=== PATIENT | male | born 1990 | race Caucasian/White ===

== ENCOUNTER 2017-09-22 22:20 | Emergency (ER) | payer SELFPAY ==
[~2017-09-22 22:20] MED LIST: Iopamidol 370 76% 100 ML VIAL ONE; Sodium Chloride 0.9% 1,000 ML BAG ONE
[2017-09-22] MEDS ORDERED: Fentanyl 100 MCG/2 ML VIAL ONE ×2 (22:37→23:38)
[2017-09-22] MEDS ORDERED: Ondansetron HCl/PF 4 MG/2 ML Vial ONE (22:37)
[2017-09-22 22:50] LABS: #Basophils 0.1 thou/uL (0.0-0.2); #Eosinphils 0.1 thou/uL (0.0-0.7); #Lymphocytes 3.3 thou/uL (1.20-3.40); #Monocytes 0.9 thou/uL (0.11-0.59); #Neutrophils 6.5 thou/uL (1.40-6.50); %Basophils 0.9 % (0.0-1.0); %Eosinophils 1.3 % (0.0-10.0); %Neutrophils 59.9 % (42.0-75.0); Anion Gap 16 mmol/L (10-20); BUN (Urea Nitrogen) 11 mg/dL (8.9-20.6); Calc. Creatinine Clearance 0 mL/min (70-130); Calcium 9.4 mg/dL (7.8-10.44); Carbon Dioxide 26 mmol/L (22-29); Chloride 104 mmol/L (98-107); Estimated GFR-MDRD Greater than 90; Glucose 130 mg/dL (70-105); Hemoglobin 15.2 g/dL (14.0-18.0); Mean Corpuscular HGB CONC 34.7 g/dL (32.0-36.0); Mean Corpuscular Hemoglobin 32.2 pg (27.0-31.0); Mean Corpuscular Volume 92.7 fl (80.0-94.0); Mean Platelet Volume 6.9 fL (7.4-10.4); Platelet Count 295 thou/uL (130-400); Potassium 3.2 mmol/L (3.5-5.1); RBC Distribution Width 12.1 % (11.5-14.5); Red Blood Cell (RBC) Count 4.74 mill/uL (4.70-6.10); Sodium 143 mmol/L (136-145); White Blood Cell (WBC) Count 10.9 thou/uL (4.8-10.8)
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
== END 2017-09-23 00:18 | disposition short-term general hospital (02) ==
LOC: MADERS 22:20
DX: S22.041A Stable burst fracture of fourth thoracic vertebra, initial encounter for closed fracture (principal); S22.051A Stable burst fracture of T5-T6 vertebra, initial encounter for closed fracture; S02.40CA Maxillary fracture, right side, initial encounter for closed fracture; S02.31XA Fracture of orbital floor, right side, initial encounter for closed fracture; S62.300A Unspecified fracture of second metacarpal bone, right hand, initial encounter for closed fracture; S62.302A Unspecified fracture of third metacarpal bone, right hand, initial encounter for closed fracture; S62.304A Unspecified fracture of fourth metacarpal bone, right hand, initial encounter for closed fracture; V29.40XA Motorcycle driver injured in collision with unspecified motor vehicles in traffic accident, initial encounter
CPT/HCPCS: 70450; 70486; 71260; 72125; 74177; 80048; 80307; 85025; 94760; 96361; 96374; 96375; 96376; J2405; J3010; J7050

== ENCOUNTER 2018-02-17 09:49 | Emergency (ER) | payer MEDICAID | END 2018-02-17 10:20 | disposition home or self-care (01) | LOC: MADERS 09:49 | DX: S61.210A Laceration without foreign body of right index finger without damage to nail, initial encounter (principal); W26.9XXA Contact with unspecified sharp object(s), initial encounter | CPT/HCPCS: 12001 ==

== ENCOUNTER 2018-10-07 10:23 | Emergency (ER) | payer OTHER, SELFPAY ==
[2018-10-07] MEDS ORDERED: Timolol 0.5% Ophth Soln 5 ml Bottle ONE (10:50)
[2018-10-07] MEDS ORDERED: Tetracaine 0.5% OPHTH SOLN/PF 4 ML BOT ONE (10:51)
[2018-10-07] MEDS ORDERED: Erythromycin Base 0.5% Ophth Oint 3.5 gm Tube ONE ×2 (11:18→11:27)
== END 2018-10-07 11:35 | disposition home or self-care (01) ==
LOC: MADERS 10:23
DX: H00.11 Chalazion right upper eyelid (principal)
CPT/HCPCS: 99283

== ENCOUNTER 2019-07-12 10:44 | Emergency (ER) | payer SELFPAY ==
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
== END 2019-07-12 13:08 | disposition home or self-care (01) ==
LOC: MADERS 10:44
DX: S70.02XA Contusion of left hip, initial encounter (principal); V00.131A Fall from skateboard, initial encounter; Y93.51 Activity, roller skating (inline) and skateboarding

== ENCOUNTER 2020-11-05 23:02 | Emergency (ER) | payer SELFPAY ==
[~2020-11-05 23:02] MED LIST changes: -Sodium Chloride 0.9% 1,000 ML BAG ONE
[2020-11-06 01:22] LABS: Band 2 % (5-11); Hemoglobin 15.8 g/dL (14.0-18.0); Lymphocytes 12 % (21-51); MDiff Complete? YES; Mean Corpuscular HGB CONC 31.9 g/dL (32.0-36.0); Mean Corpuscular Hemoglobin 30.4 pg (27.0-31.0); Mean Corpuscular Volume 95.4 fL (78.0-98.0); Mean Platelet Volume 7.9 fL (7.4-10.4); Monocytes 1 % (0-10); Neutrophil 84 % (42-75); Platelet Count 287 thou/uL (130-400); Platelet Morphology Comment Appears Adequate; RBC Distribution Width 11.9 % (11.5-14.5); RBC Morphology Normal; Reactive Lymphocytes 1 % (0-10); Red Blood Cell (RBC) Count 5.18 mill/uL (4.70-6.10)
[2020-11-06] MEDS ORDERED: Sodium Chloride 0.9% 1,000 ML ONE (01:23)
[2020-11-06 01:30] LABS: ALT (SGPT) 21 U/L (8-55); AST (SGOT) 21 U/L (5-34); Albumin 4.8 g/dL (3.5-5.0); Alcohol 144 mg/dL (Less than 10); Alkaline Phosphatase 78 U/L (40-110); Anion Gap 17 mmol/L (10-20); BUN (Urea Nitrogen) 7 mg/dL (8.9-20.6); Bilirubin, Total 0.3 mg/dL (0.2-1.2); Calc. Creatinine Clearance 0 mL/min (70-130); Calcium 9.2 mg/dL (7.8-10.44); Carbon Dioxide 26 mmol/L (22-29); Chloride 105 mmol/L (98-107); Globulin 2.7 g/dL (2.4-3.5); Glucose 114 mg/dL (70-105); Potassium 3.9 mmol/L (3.5-5.1); Protein, Total 7.5 g/dL (6.0-8.3); Sodium 144 mmol/L (136-145)
== END 2020-11-06 03:06 | disposition left against medical advice (07) ==
LOC: MADERS 23:02
DX: S06.0X9A Concussion with loss of consciousness of unspecified duration, initial encounter (principal); S02.40DA Maxillary fracture, left side, initial encounter for closed fracture; S02.40FA Zygomatic fracture, left side, initial encounter for closed fracture; Y04.0XXA Assault by unarmed brawl or fight, initial encounter
CPT/HCPCS: 21400; 70450; 70486; 71260; 72125; 74177; 80053; 80307; 85025; 94760; J7050; Q9967